=== PATIENT | female | born 2000 | race Caucasian/White ===

== ENCOUNTER 2020-09-05 00:08 | Inpatient (IN) | payer OTHER ==
[~2020-09-05] VITALS: Ht 160 cm; Wt 88.5 kg
--- NOTE | 2020-09-05 00:11 | NUR ---
PT AAOX4. C/O RUQ PAIN RADIATING TO BACK HX OF GALLSTONES 4WKS PREG; LMP 07/31. PLACED ON MONITOR AND PULSE OX. MARTHA. AT BEDSIDE FOR EVAL. AWAITING ORDERS.
--- NOTE | 2020-09-05 00:24 | NUR ---
REMEDIAL READING TEACHER AT BEDSIDE
[2020-09-05] MEDS ORDERED: IV NS 0.9% 1,000 ML BAG IV ONE (00:30)
--- NOTE | 2020-09-05 00:36 | NUR ---
PT AMBULATED TO THE RESTROOM
[2020-09-05 00:41] LABS: BASOPHILS # (AUTO) 0.3 /CMM (0.0-0.2); BASOPHILS % (AUTO) 1.4 % (0.0-2.0); EOSINOPHILS % (AUTO) 0.6 % (0.0-6.0); HEMATOCRIT 43 % (33-45); LYMPHOCYTES # (AUTO) 1.3 /CMM (0.8-4.8); LYMPHOCYTES % (AUTO) 6.2 % (20.0-44.0); MEAN CORPUSCULAR HGB CONC 33 g/dl (31.0-36.0); MEAN CORPUSCULAR VOLUME 89 fL (82-100); MONOCYTES # (AUTO) 1.3 /CMM (0.1-1.30); MONOCYTES % (AUTO) 6.5 % (2.0-12.0); NEUTROPHILS # (AUTO) 17.6 /CMM (1.8-8.9); NEUTROPHILS % (AUTO) 85.3 % (43.0-81.0); PLATELET COUNT (AUTO) 342 /CMM (150-450); RED BLOOD CELL COUNT(AUTO) 4.82 MIL/uL (4.0-5.2); WHITE BLOOD COUNT (AUTO) 20.7 K/uL (4.3-11.0)
--- NOTE | 2020-09-05 01:46 | NUR ---
US AT BEDSIDE
[2020-09-05 01:50] LABS: CALCIUM, SERUM 8.9 mg/dL (8.5-10.1); CREATININE 0.5 mg/dL (0.6-1.3)
[2020-09-05 01:58] LABS: ALBUMIN 3.3 g/dL (3.4-5.0); BILIRUBIN,DIRECT 0.1 mg/dL (0.0-0.2); BILIRUBIN,TOTAL 0.5 mg/dL (0.2-1.0); TOTAL PROTEIN, SERUM 7.7 g/dL (6.4-8.2)
--- NOTE | 2020-09-05 02:29 | NUR ---
Called lab regarding covid swab
[2020-09-05] MEDS ORDERED: PIPERACILLIN /TAZOBACTAM 3.375 G VIAL IV ONE (02:44)
[2020-09-05] MEDS ORDERED: PIPERACILLIN /TAZOBACTAM 3.375 G in IV D5W 50 ML IV ONE (03:00)
--- NOTE | 2020-09-05 03:21 | NUR ---
called RN sup for m/s bed
--- NOTE | 2020-09-05 03:24 | NUR ---
called [facility] for panel admission. dr. lilly franco.
--- NOTE | 2020-09-05 03:32 | NUR ---
called general surgery dr. sierra, . full unable to leave .
--- NOTE | 2020-09-05 03:36 | NUR ---
called dr. rebeca barnett 2nd attempt. vm full. dr. talley aware
--- NOTE | 2020-09-05 03:51 | NUR ---
dr. carr aware unable to get hold of dr. barnett.
--- NOTE | 2020-09-05 03:52 | NUR ---
also informed ROSELYN roberson to follow up with dr. barnett regarding surgical consult with admitting
--- NOTE | 2020-09-05 03:52 | NUR ---
pt reassigned to 320-1 per 3w CN.
[2020-09-05] MEDS ORDERED: MAG HYDROX/AL HYDROX/SIMETH 30 ML UDC PO PRN (04:00)
[2020-09-05] MEDS ORDERED: HYDROCODONE/APAP 5/325MG TABLET PO PRN (04:00)
[2020-09-05] MEDS ORDERED: Z GUARD REMEDY 2 OZ OINT TP PRN (04:00)
[2020-09-05] MEDS ORDERED: MORPHINE SULFATE INJ 2 MG/ML DISP.SYRIN IV PRN (04:00)
[2020-09-05] MEDS ORDERED: IV NS 0.9% 1,000 ML IV PRN (04:00)
[2020-09-05] MEDS ORDERED: MAGNESIUM HYDROXIDE 30 ML UDC PO PRN (04:00)
[2020-09-05] MEDS ORDERED: ONDANSETRON HCL/PF 4 MG/2 ML VIAL IVP PRN (04:00)
--- NOTE | 2020-09-05 04:06 | NUR ---
dr. barnett spoke to dr. talley regarding plan of care.
[2020-09-05 04:30] VITALS: BP 146/77
[2020-09-05] MEDS: ACETAMINOPHEN 325 MG TABLET PO PRN ×3 (04:51→19:48)
--- NOTE | 2020-09-05 06:03 | NUR ---
MS INSIDE SALES ACCOUNT MANAGER NOTES: ADMITTED A 19YO DUE TO RUQ ABDOMINAL PAIN THROUGH [facility], BROUGHT INTO 3WEST UNIT VIA GURNEY. PATIENT IS ALERT AWAKE AND ORIENTED X4, ABLE TO MAKE HER NEEDS KNOWN. VITAL SIGNS TAKEN. NOT IN RESPIRATORY DISTRESS. REPORTS PAIN 10/10 ON THE ABDOMEN ACUTE IN NATURE. PER PATIENT SHE HAS HAD A HISTORY OF GALLSTONES 4 YRS AGO. PATIENT REPORTED TO BE 4 WEEKS , LMP 07/31/2020. PATIENT LINDA REPORTED DURING ADMISSION ASSESSMENT TO HAVE HAD PSYCH INPATIENT ADMISSION AT [facility] NOVEMBER 2019 FOR SUICIDAL IDEATION-DIAGNOSES AT [facility] - DEPRESSION AND ANXIETY. ALTERNATIVE MEDICINE PRACTITIONER WILL ATTACH LIST OF MEDICATIONS IN THE REPORT. PATIENT PLACED ON NPO BY DR. ANDRADE. SHAILESH, VOCAL MUSIC TEACHER CLARIFIED WITH ER DOC REGARDING ADMINISTRATION OF MORPHINE FOR PATIENT- PER TYLENOL IS THE SAFEST MEDICATION TO GIVE FOR NOW. WILL WAIT FURTHER ON DR. CLARK'S EVAL- PATIENT MADE AWARE. BELONGINGS CHECKED. IVF OF NS @75 ML STARTED PER ORDER. WILL MONITOR PATIENT. WILL ENDORSE PATIENT TO ONCOMING NURSE.
[2020-09-05] MEDS ORDERED: TEMA30CA PO (06:13)
[2020-09-05] MEDS ORDERED: SERT50TA PO (06:13)
[2020-09-05] MEDS ORDERED: ARIP10TA9 PO (06:13)
[2020-09-05 08:00] VITALS: BP 104/56
[2020-09-05] MEDS: PIPERACILLIN /TAZOBACTAM 3.375 G in IV D5W 100 ML IV SCH ×2 (09:34→18:14)
[2020-09-05 16:00] VITALS: BP 119/79
--- NOTE | 2020-09-05 18:35 | NUR ---
MS RN NOTES PATIENT IN BED RESTING NO SOB OR ACUTE DISTRESS NOTED. ALL DUE MEDICATIONS ADMINISTERED. ALL NEEDS MET. NO ACUTE CHANGES NOTED DURING AM SHIFT. PATIENT IS ONLY ABLE TO GIVE TYLENOL FOR PAIN MANAGEMENT. PATIENT ALSO NPO. WILL ENDORSE CARE TO PM SHIFT.
--- NOTE | 2020-09-05 19:13 | NUR ---
MS RN OPENING NOTES PATIENT SLEEPING, AWAKENS TO NAME. A/OX4. STABLE ON RA; NO C/O SOB; BREATHING IS EVEN AND UNLABORED. PATIENT C/O SLIGHT ABDOMINAL PAIN. IV PRESENT ON LEFT AC, SIZE 20, INTACT & PATENT WITH IVPB ZOSYN RUNNING AT 25 ML/HR. SAFETY MEASURES IN PLACE AND PATIENT'S NEEDS MET. BED LOCKED, SIDE RAILS X2, CALL LIGHT WITHIN REACH. WILL CONTINUE TO MONITOR.
[2020-09-05 20:00] VITALS: BP 137/80
[2020-09-06] MEDS: PIPERACILLIN /TAZOBACTAM 3.375 G in IV D5W 100 ML IV SCH ×2 (02:18→10:13)
[2020-09-06] MEDS: ACETAMINOPHEN 325 MG TABLET PO PRN ×2 (03:51→10:12)
[2020-09-06 07:10] LABS: BASOPHILS # (AUTO) 0.1 /CMM (0.0-0.2); BASOPHILS % (AUTO) 0.5 % (0.0-2.0); EOSINOPHILS % (AUTO) 0.6 % (0.0-6.0); HEMATOCRIT 40 % (33-45); HEMOGLOBIN 13.2 g/dL (11.5-14.8); LYMPHOCYTES # (AUTO) 1.5 /CMM (0.8-4.8); LYMPHOCYTES % (AUTO) 10.2 % (20.0-44.0); MEAN CORPUSCULAR HGB CONC 33 g/dl (31.0-36.0); MEAN CORPUSCULAR VOLUME 87 fL (82-100); MONOCYTES # (AUTO) 1.3 /CMM (0.1-1.30); MONOCYTES % (AUTO) 8.5 % (2.0-12.0); NEUTROPHILS # (AUTO) 11.9 /CMM (1.8-8.9); NEUTROPHILS % (AUTO) 80.2 % (43.0-81.0); PLATELET COUNT (AUTO) 356 /CMM (150-450); WHITE BLOOD COUNT (AUTO) 14.8 K/uL (4.3-11.0)
--- NOTE | 2020-09-06 07:50 | NUR ---
MS RN OPENING NOTES PATIENT AWAKE. A/OX4. STABLE ON RA; NO C/O SOB; BREATHING IS EVEN AND UNLABORED. IV PRESENT ON LEFT AC, SIZE 20, INTACT & PATENT WITH NS RUNNING AT 75 ML/HR. SAFETY MEASURES IN PLACE AND PATIENT'S NEEDS MET. BED LOCKED, SIDE RAILS X2, CALL LIGHT WITHIN REACH. ENDORSED TO DAY SHIFT RN PLAN OF CARE. Addendum: 09/06/20 at 0751 by GUY GARAY RN MS RN CLOSING NOTES
[2020-09-06 08:00] VITALS: BP 130/69
[2020-09-06 09:08] LABS: CALCIUM, SERUM 8.5 mg/dL (8.5-10.1); CREATININE 0.6 mg/dL (0.6-1.3); MAGNESIUM 1.8 mg/dL (1.8-2.4); PHOSPHORUS 2.8 mg/dL (2.5-4.9); POTASSIUM 3.3 mmol/L (3.5-5.1)
--- NOTE | 2020-09-06 12:00 | NUR ---
MS RN NOTES PATIENT SEEN BY [facility] DOUBLE AND ORDERS TO START PATIENT ON CLEAR LIQUIDS AND ADVANCE TOLERATED.
--- NOTE | 2020-09-06 13:45 | NUR ---
SW Consult: SW consult was requested due to pt being homeless. Patient is a 19 year old female admitted at [facility] on 09/05/2020 due to abdominal pain. Patient appeared with a flat affect. Patient was vague with this poem writer. Patient stated she lives in a Vehicle and will continue to do so. Patient has been living in her vehicle for 7 months. Patient stated she has a mother but she does not communicate with her mother. Patient stated she is . SW asked if pt is receiving any care. She reported she has been in contact with "some clinic in [place]". This poem writer gave pt resources to [facility] in [place] [address], [place] [address]; ([phone]) and stated they have a walk-in clinic. Patient stated she will follow-up with the walk-in clinic. Patient was reserved with answering questions while this SW was conducting the assessment. However, pt stated she would want to be discharged to her vehicle upon discharge. She stated she is in the process of finding a place for her. She stated she has been in contact with [facility] and they are helping her out. Pt denies suicidal ideation or homicidal ideation. Pt denies visual/auditory hallucinations. Patient stated prior to she was drinking. This SW conducted brief substance abuse intervention. Patient was given substance abuse resources: [facility] ([phone]); [facility] [address] [place] [address] ([phone]); [address] [place] [address] ([phone]); [facility] ([phone]); [facility] ([phone]); [facility] ([phone]); [facility] ([phone]). SW provided homeless resource for 2019 homeless directory which provides information on locations for hot meals, sack lunches, food pantries, and showers. Patient was provided with [facility] and [facility]. Pt has a significant other Will Te ([phone]) per face sheet. She was open to SW providing resources and provided resources to shelters. Addendum: 09/06/20 at 1429 by OSCAR FOOTE Patient signed the homeless waiver upon discharge, and copy was placed in the chart, and resources were given.
[2020-09-06] MEDS ORDERED: LEVO750T46 PO (14:43)
[2020-09-06] MEDS ORDERED: POTASSIUM CHLORIDE 20 MEQ TAB.PRT.SR PO ONE (15:00)
--- NOTE | 2020-09-06 15:00 | NUR ---
MS RN NOTES PATIENT WAS DISCHARGED BY DR. DUPREE. PATIENT AGREES WITH DISCHARGE. PATIENT WAS SEEN BY COOLING TOWER TECHNICIAN ALL RECOURSES GIVEN TO PATIENT. EDUCATED PATIENT ON DISCHARGE INSTRUCTIONS. PATIENT STATES SHE WILL SEE AN OB-FILLER LEAF CUTTER LONG AT THE [facility] TO. INSTRUCTED ON THE IMPORTANCE OF TAKING ATB. PRESCRIBED. WILL CONTINUE TO MONITOR.
[2020-09-06 16:00] VITALS: BP 106/55
--- NOTE | 2020-09-06 16:40 | NUR ---
DISCHARGE NOTED. PATIENT DISCHARGED HOME WITH BOYFRIEND. DISCHARGE EDUCATION PROVIDED VERBALIZED UNDERSTANDING. RESOURCES PROVIDED. MD AWARE OF ALL LABS AND TESTS. ALL BELONGINGS ACCOUNTED FOR, BELONGING LIST SIGNED. PERIPHERAL IV REMOVED WITH MINIMAL BLEEDING. ID BAND REMOVED. PATIENT ESCORTED TO CAR.
== END 2020-09-06 16:40 | disposition home or self-care (01) | DRG 566 ==
LOC: ER 00:08 → MED 03:36
PROVIDERS: ADMIT Nurse Practitioner Acute Care
DX: O26.611 Liver and biliary tract disorders in pregnancy, first trimester (principal); O99.611 Diseases of the digestive system complicating pregnancy, first trimester; Z3A.01 Less than 8 weeks gestation of pregnancy; E44.1 Mild protein-calorie malnutrition; K80.00 Calculus of gallbladder with acute cholecystitis without obstruction; O25.11 Malnutrition in pregnancy, first trimester; D72.829 Elevated white blood cell count, unspecified; E88.09 Other disorders of plasma-protein metabolism, not elsewhere classified; Z68.34 Body mass index [BMI] 34.0-34.9, adult; Z87.891 Personal history of nicotine dependence
CPT/HCPCS: 36415; 76705-TC; 76856-TC; 80048-TC; 80061-TC; 80076-TC; 83690-TC; 83735-TC; 84100-TC; 84702-TC; 85025-TC; 87081-TC; C9803; G0378; J2543; J7030; J7060

== ENCOUNTER 2024-10-13 08:49 | Emergency (ER) | payer OTHER ==
[~2024-10-13] VITALS: Ht 160 cm; Wt 97.5 kg
[~2024-10-13 08:49] MED LIST: ARIP10TA9 PO; LEVO750T46 PO; SERT50TA PO; TEMA30CA PO
[2024-10-13 08:55] VITALS: BP 139/86; TEMP 98.2
[2024-10-13] MEDS ORDERED: KETOROLAC TROMETHAMINE INJ 30 MG/ML VIAL ONE (09:13)
[2024-10-13] MEDS: KETOROLAC TROMETHAMINE INJ 30 MG/ML VIAL IM ONE (09:17)
[2024-10-13] MEDS ORDERED: oxyCODONE/APAP (5/325 MG) 1 UDTAB TABLET ONE (09:39)
[2024-10-13] MEDS: oxyCODONE/APAP (5/325 MG) 1 UDTAB TABLET PO ONE (09:41)
[2024-10-13 10:52] VITALS: O2SAT 99
== END 2024-10-13 10:53 | disposition home or self-care (01) ==
LOC: ER 08:55
DX: S92.511A Displaced fracture of proximal phalanx of right lesser toe(s), initial encounter for closed fracture (principal); Z79.899 Other long term (current) drug therapy; W22.8XXA Striking against or struck by other objects, initial encounter; Y93.89 Activity, other specified; Y92.89 Other specified places as the place of occurrence of the external cause; Y99.8 Other external cause status
CPT/HCPCS: 28515; 73630; 99283; J1885

== ENCOUNTER 2025-09-04 01:19 | Emergency (ER) | payer OTHER ==
[~2025-09-04] VITALS: Ht 167.6 cm; Wt 97.5 kg
[2025-09-04] MEDS ORDERED: GUAIFENESIN/D-METHORPHAN HB 5 ML UDC ONE (01:44)
[2025-09-04] MEDS: GUAIFENESIN/D-METHORPHAN HB 5 ML UDC PO ONE (01:49)
[2025-09-04] MEDS ORDERED: BENZ-13 PO (02:10)
[2025-09-04] MEDS ORDERED: GUAI1TBM19 PO (02:10)
[2025-09-04 02:19] VITALS: BP 140/72; TEMP 98.4; O2SAT 96
== END 2025-09-04 02:20 | disposition home or self-care (01) ==
LOC: ER 01:26
DX: J06.9 Acute upper respiratory infection, unspecified (principal); B97.89 Other viral agents as the cause of diseases classified elsewhere; Z79.899 Other long term (current) drug therapy
CPT/HCPCS: 71045-TC